=== PATIENT | female | born 1980 | race Hispanic/Latino ===

== ENCOUNTER 2018-12-10 05:50 | Inpatient (IN) | payer MEDICAID ==
--- NOTE | 2018-12-10 06:32 | Emergency Department Report ---
ED General Adult HPI - General Chief complaint: Seizure Stated complaint: SEIZURE Time Seen by Provider: 12/10/18 06:27 Source: family, EMS Mode of arrival: Stretcher Limitations: Other - History of Present Illness Initial comments: 38 year old resident of a fdc who comes with 2 custodians. They state that the patient was seen on Saturday and Saturday for recurrent seizures at [place]. She was not admitted to the hospital. They state that she is having recurrent seizures again this morning. She is on a variety of at the epileptic drugs which does not include Keppra. They described activity which may be consistent with both partial and generalized seizures. The patient is brought to the emergency department for recurrent seizures. Patient herself is not verbal at her baseline. She cannot provide any history. Aside from the seizure activity, the the caretakers do not report any other specific symptoms. They do state that she was treated for a UTI at [place]. - Related Data Allergies Allergy/AdvReac Type Severity Reaction Status Date / Time Penicillins Allergy Unknown Verified 12/10/18 06:15 red dye Allergy Unknown Verified 12/10/18 06:15 ED Review of Systems ROS: Stated complaint: SEIZURE Other details as noted in HPI Comment: Unobtainable due to pts medical conditions ED Past Medical Hx - Past Medical History Previous Medical History?: Yes Hx Seizures: Yes Additional medical history: mental retardation - Surgical History Past Surgical History?: No - Social History Smoking Status: Never Smoker ED Physical Exam - General Limitations: Other (nonverbal patient) General appearance: alert (reasonably alert) - Head Head exam: Present: atraumatic, normocephalic - Eye Eye exam: Present: normal appearance - ENT ENT exam: Present: mucous membranes moist - Neck Neck exam: Present: normal inspection. Absent: tenderness, meningismus - Respiratory Respiratory exam: Present: normal lung sounds bilaterally - Cardiovascular Cardiovascular Exam: Present: regular rate, normal rhythm. Absent: systolic murmur, diastolic murmur, rubs, gallop - GI/Abdominal GI/Abdominal exam: Present: soft, normal bowel sounds. Absent: distended, tenderness, guarding, rebound, rigid - Extremities Exam Extremities exam: Present: normal inspection - Back Exam Back exam: Present: normal inspection - Neurological Exam Neurological exam: Present: alert, CN II-XII intact (as testable). Absent: motor sensory deficit - Psychiatric Psychiatric exam: Present: normal mood, flat affect - Skin Skin exam: Present: warm, dry, intact, normal color. Absent: rash ED Course Vital Signs 12/10/18 06:15 Temperature 98.2 F Pulse Rate 98 H Respiratory 20 Rate Blood Pressure 118/68 O2 Sat by Pulse 99 Oximetry - Reevaluation(s) Reevaluation #1: I ordered the patient to receive a gram of Keppra IV, laboratory workup and CT examination. Admission was being considered for recurrent seizures. I was later informed by nursing staff that instead of getting the Keppra which was 100 mL, inadvertently the nurse gave insulin 100 units in 100 mL. Immediately thereafter, an Accu-Chek was ordered and found to be 55. Patient was given an amp of D50. A D10 drip half normal saline with supplemental potassium was ordered. Every 15 minute Accu-Cheks were ordered. CT the head was completed and showed no acute process. A repeat Accu-Chek was found to be 64. Another amp of D50 was ordered. The patient will be admitted to the [facility]. Hospitalist has been notified. A repeat BMP is also ordered as hypokalemia may be anticipated. I have begun some supplementation prophylactically. Close monitoring of this patient is clearly indicated. She will be kept in the emergency department until her sugar is reasonably stabilized. The charge nurse is aware of the above. I informed the fdc staff of the inadvertent error. I apologized for this. I reassured them that The patient will be closely monitored and should be expected to do well in my opinion. 12/10/18 10:26 12/10/18 10:31 ED Medical Decision Making - Lab Data Result diagrams: 12/10/18 06:42 12/10/18 06:32 Critical Care Time: Yes Critical care time in (mins) excluding proc time.: 60 Critical care attestation.: If time is entered above; I have spent that time in minutes in the direct care of this critically ill patient, excluding procedure time. ED Disposition Clinical Impression: Recurrent seizures, Hypoglycemia Disposition: OP ADMIT IP TO THIS HOSP Is pt being admited?: Yes Does the pt Need Aspirin: Yes Condition: Stable Referrals: CAMILLE VIVAR MD [Primary Care Provider] - 3-5 Days Time of Disposition: 10:33
[2018-12-10] MEDS ORDERED: NACL 0.9% 1000 ML 1,000 ML IV ONE (06:40)
[2018-12-10 06:54] LABS: Hematocrit 38.7 % (30.3-42.9); Hemoglobin 12.8 gm/dl (10.1-14.3); Mean Corpuscular HGB Conc 33 % (30-34); Mean Corpuscular Volume 93 fl (79-97); Platelet Count 127 K/mm3 (140-440); Red Blood Count 4.17 M/mm3 (3.65-5.03); Red Cell Distribution Width 13.5 % (13.2-15.2)
[2018-12-10 07:12] LABS: BUN/Creatinine Ratio 32; Blood Urea Nitrogen 16 mg/dL (7-17); Calcium 8.2 mg/dL (8.4-10.2); Hemolysis Index 11
[2018-12-10] MEDS ORDERED: KEPPRA 1,000 MG/NS 0.75% 100ML 1,000 MG/100 ML BAG IV ONE (07:13)
[2018-12-10] MEDS ORDERED: D50W (25GM) Syringe IV ONE ×4 (09:30→18:52)
[2018-12-10] MEDS ORDERED: D5W/0.45% NACL/KCL 20 MEQ 20 MEQ/1,000 ML BAG IV SCH (10:00)
--- NOTE | 2018-12-10 10:00 | Cat Scan Report ---
CT scan of head without IV contrast: History: Recurrent seizure. Findings: Ventricles are normal in size and midline in location. No evidence of acute ischemia, hemorrhage or mass. No extra-axial fluid collection. Normal brainstem and cerebellum. Normal sinuses and mastoid air cells. Impression: No acute intracranial abnormality.
[2018-12-10] MEDS ORDERED: BABY ASPIRIN PO ONE (10:33)
--- NOTE | 2018-12-10 10:35 | History and Physical Report ---
History of Present Illness Date of examination: 12/10/18 Date of admission: 12/10/18 Chief complaint: Recurrent seizure History of present illness: Patient is a 38-year-old female resident of a [place] [facility] [place] with history of seizure disorder on average has a seizure a day also has a history of mental retardation currently follows at [facility] her primary care and neurology needs. Was recently seen at [facility] for increase frequency of seizure and discharged with treatment for acute cystitis which was felt to be the reason why her seizure has increased. Unfortunately patient continues to have recurrent seizures about 4 yesterday to so far on presentation to the hospital. She takes multiple antiepileptic medications. She is here with a caregiver and is nonverbal at baseline. She does ambulate with gait and is able to feed herself. In the ER she inadvertently received nurse gave insulin 100 units in 100 mL instead of ordered Keppra IV. The error was acknowleged and [place] [facility] staff advised and patient was started on D10 DRIP Following administration of d50. Past History Past Medical History: other (Mental Retardation, seizure) Past Surgical History: Other (unknown) Social history: full code, other (residence of a [place] [facility] [place]) Family history: no significant family history Medications and Allergies Allergies Allergy/AdvReac Type Severity Reaction Status Date / Time Penicillins Allergy Unknown Verified 12/10/18 06:15 red dye Allergy Unknown Verified 12/10/18 06:15 Home Medications Medication Instructions Recorded Confirmed Last Taken Type Calcium Carbonate/Vitamin D3 1 each PO DAILY 12/10/18 12/10/18 Unknown History [Os-Gerard 500+D3 Caplet] Docusate Sodium [Colace] 100 mg PO BID 12/10/18 12/10/18 Unknown History Lactulose 10 gm PO DAILY 12/10/18 12/10/18 Unknown History Quetiapine Fumarate [QUEtiapine 300 mg PO QHS 12/10/18 12/10/18 Unknown History Fumarate] Quetiapine Fumarate [SEROquel] 50 mg PO BID 12/10/18 12/10/18 Unknown History Topiramate [Topiramate ER] 150 mg PO DAILY 12/10/18 12/10/18 Unknown History cephALEXin [Keflex] 500 mg PO Q12HR 12/10/18 12/10/18 Unknown History lamoTRIgine [LaMICtal Odt] 100 mg PO BID 12/10/18 12/10/18 Unknown History levETIRAcetam [Keppra TAB] 1,000 mg PO BID 12/10/18 12/10/18 Unknown History Active Meds: Active Medications Potassium Chloride/Dextrose/Sod Cl (D5w/0.45% Nacl/Kcl 20 Meq) 20 meq in 1,000 mls @ 200 mls/hr IV DIRECT CARI Review of Systems ROS unobtainable: due to mental status All systems: negative (except reported seizure. pt non verbal at baseline) Exam - Physical Exam Narrative exam: VITAL SIGNS: Reviewed. GENERAL: The patient appeared well nourished and normally developed otherwise lethargic, Vital signs as documented. HEAD: No signs of head trauma. EYES: Pupils are equal. Extraocular motions intact. EARS: Hearing grossly intact. MOUTH: Oropharynx is normal. NECK: No adenopathy, no JVD. CHEST: Chest with clear breath sounds bilaterally. No wheezes, rales, or rhonchi. CARDIAC: Regular rate and rhythm. S1 and S2, without murmurs, gallops, or rubs. VASCULAR: No Edema. Peripheral pulses normal and equal in all extremities. ABDOMEN: Soft, non tender and non distended. No rebound or guarding, and no masses palpated. Bowel Sounds normal. MUSCULOSKELETAL: Good range of motion of all major joints. Extremities without clubbing, cyanosis or edema. NEUROLOGIC EXAM: awake but lethargic No focal sensory or strength deficits. PSYCHIATRIC: Mood unable to assess. SKIN: No rash or lesions. - Constitutional Vitals: Temp Pulse Resp BP Pulse Ox 98.2 F 98 H 20 118/68 99 12/10/18 06:15 12/10/18 06:15 12/10/18 06:15 12/10/18 06:15 12/10/18 06:15 Results - Labs CBC & Chem 7: 12/10/18 06:42 12/10/18 14:27 Labs: Laboratory Last Values WBC 6.1 K/mm3 (4.5-11.0) 12/10/18 06:42 RBC 4.17 M/mm3 (3.65-5.03) 12/10/18 06:42 Hgb 12.8 gm/dl (10.1-14.3) 12/10/18 06:42 Hct 38.7 % (30.3-42.9) 12/10/18 06:42 MCV 93 fl (79-97) 12/10/18 06:42 MCH 31 pg (28-32) 12/10/18 06:42 MCHC 33 % (30-34) 12/10/18 06:42 RDW 13.5 % (13.2-15.2) 12/10/18 06:42 Plt Count 127 K/mm3 (140-440) L 12/10/18 06:42 Sodium 137 mmol/L (137-145) 12/10/18 06:32 Potassium 3.6 mmol/L (3.6-5.0) 12/10/18 06:32 Chloride 105.9 mmol/L (98-107) 12/10/18 06:32 Carbon Dioxide 21 mmol/L (22-30) L 12/10/18 06:32 Anion Gap 14 mmol/L 12/10/18 06:32 BUN 16 mg/dL (7-17) 12/10/18 06:32 Creatinine 0.5 mg/dL (0.7-1.2) L 12/10/18 06:32 Estimated GFR > 60 ml/min 12/10/18 06:32 BUN/Creatinine Ratio 32 % 12/10/18 06:32 Glucose 84 mg/dL (65-100) 12/10/18 06:32 POC Glucose 64 (70-105) L 12/10/18 10:29 Calcium 8.2 mg/dL (8.4-10.2) L 12/10/18 06:32 Assessment and Plan Assessment and plan: Patient is a 38-year-old female resident of [place] with history of seizure disorder on average has a seizure a day also has a history of mental retardation currently follows at [facility] her primary care and neurology needs. Was recently seen at [facility] for increase frequency of seizure and discharged with treatment for acute cystitis which was felt to be the reason why her seizure has increased. Unfortunately patient continues to have recurrent se izures about 4 yesterday to so far on presentation to the hospital. She takes multiple antiepileptic medications. She is here with a caregiver and is nonverbal at baseline. She does ambulate with gait and is able to feed herself. In the ER she inadvertently received nurse gave insulin 100 units in 100 mL instead of ordered Keppra IV. The error was acknowledged and [place] [facility] staff advised and patient was started on D10 DRIP Following administration of d50. Seziure disorder Acute Metabolic Encephalopathy secondary to Medication Iatrogenic Hypoglycemia Mental retardation by hx. Admit to [facility] Neurology consult Obtain records from [facility] Give an amp of Bicarb Monitor glucose q1hr D50 as needed MRI Brain, may need sedation Restart appropriate home meds The high probability of a clinically significant, sudden or life threatening deterioration of the [NEURO, ENDOCRINE] system(s) required my full and direct attention, intervention and personal management. The aggregate critical care time was [75] minutes. This time is in addition to time spent performing reported procedures but includes the following: [X] Data Review and interpretation [X] Patient assessment and monitoring of vital signs [X] Documentation [X] Medication orders and management Advance Directives: Yes Plan of care discussed with patient/family: Yes
[2018-12-10] MEDS ORDERED: ZOFRAN IV PRN (11:00)
[2018-12-10] MEDS ORDERED: SODIUM CHLORIDE FLUSH SYRINGE 10 ML IV PRN (11:00)
[2018-12-10] MEDS ORDERED: KCL IV SCH (12:30)
[2018-12-10] MEDS ORDERED: D10W IV SCH (12:30)
[2018-12-10] MEDS ORDERED: NACL IV SCH (12:30)
[2018-12-10 13:24] LABS: BUN/Creatinine Ratio 25; Blood Urea Nitrogen 10 mg/dL (7-17); Calcium 7.6 mg/dL (8.4-10.2); Hemolysis Index 11
[2018-12-10] MEDS ORDERED: D10W 1,000 ML IV SCH (14:00)
[2018-12-10 14:47] LABS: BUN/Creatinine Ratio 18; Blood Urea Nitrogen 9 mg/dL (7-17); Hemolysis Index 51
[2018-12-10] MEDS ORDERED: ATROPINE 0.1% (CARDIAC) ONE (17:06)
[2018-12-10] MEDS ORDERED: BENADRYL PO PRN (17:16)
--- NOTE | 2018-12-10 17:47 | Consultation ---
History of Present Illness Consult date: 12/10/18 Requesting physician: CIARA BOX Reason for Consult: Intractable seizures History of present illness: 38 year old female was brought in from a correction because of multiple seizures per day. The pt. has mental retardation as well as known seizure disorder treated at [facility]. She is taking multiple medications. The pt. was seen there on the weekend for the same problem and told that she had a UTI, as t he cause of her seizures. She has been taking an antibiotic for this but it has not affected the seizure activity. Caregivers have brought her in for further care. The pt, is nonverbal. She ambulates with assistance with a gait belt and also feeds herself. Past History Past Medical History: seizures, other (mental retardation) Past Surgical History: No surgical history Social history: other (lives in correction). denies: smoking, alcohol abuse Medications and Allergies Allergies Allergy/AdvReac Type Severity Reaction Status Date / Time Penicillins Allergy Unknown Verified 12/10/18 06:15 red dye Allergy Unknown Verified 12/10/18 06:15 Home Medications Medication Instructions Recorded Confirmed Last Taken Type Calcium Carbonate/Vitamin D3 1 each PO DAILY 12/10/18 12/10/18 Unknown History [Os-Gerard 500+D3 Caplet] Docusate Sodium [Colace] 100 mg PO BID 12/10/18 12/10/18 Unknown History Lactulose 10 gm PO DAILY 12/10/18 12/10/18 Unknown History Quetiapine Fumarate [QUEtiapine 300 mg PO QHS 12/10/18 12/10/18 Unknown History Fumarate] Quetiapine Fumarate [SEROquel] 50 mg PO BID 12/10/18 12/10/18 Unknown History Topiramate [Topiramate ER] 150 mg PO DAILY 12/10/18 12/10/18 Unknown History cephALEXin [Keflex] 500 mg PO Q12HR 12/10/18 12/10/18 Unknown History lamoTRIgine [LaMICtal Odt] 100 mg PO BID 12/10/18 12/10/18 Unknown History levETIRAcetam [Keppra TAB] 1,000 mg PO BID 12/10/18 12/10/18 Unknown History Active Meds: Active Medications Albuterol/Ipratropium (Duoneb *Not For Prn Use*) 1 ampul IH Q6HRT CARI Calcium/Vitamin D ([place] D 500 Mg-200 Unit) 1 each PO DAILY CARI Cephalexin (Keflex) 500 mg PO Q12HR CARI Diphenhydramine HCl (Benadryl) 50 mg PO Q6H PRN PRN Reason: Itching Docusate Sodium (Colace) 100 mg PO BID CARI Dextrose (D10w) 1,000 mls @ 125 mls/hr IV DIRECT CARI Lamotrigine (Lamictal) 100 mg PO BID CARI Levetiracetam (Keppra) 1,000 mg PO BID CARI Miscellaneous Medication (Topiramate [Topiramate Er]) 150 mg PO DAILY CARI Ondansetron HCl (Zofran) 4 mg IV Q8H PRN PRN Reason: Nausea And Vomiting Quetiapine Fumarate (Seroquel) 50 mg PO BID CARI Quetiapine Fumarate (Seroquel) 300 mg PO QHS CARI Sodium Chloride (Sodium Chloride Flush Syringe 10 Ml) 10 ml IV BID CARI Sodium Chloride (Sodium Chloride Flush Syringe 10 Ml) 10 ml IV PRN PRN PRN Reason: LINE FLUSH Review of Systems ROS unobtainable: due to mental status Physical Examination - Vital Signs Vital Signs: Vital Signs Pulse Resp BP 109 H 10 L 118/85 12/10/18 06:01 12/10/18 06:01 12/10/18 06:01 - Physical Exam Narrative exam: General - Writhing on [facility]. 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 Constantly in motion. No witnessed seizures Results - Laboratory Findings CBC and BMP: 12/10/18 06:42 12/10/18 14:27 Abnormal Lab Findings: Abnormal Labs 12/10/18 12/10/18 12/10/18 06:32 06:42 09:28 Plt Count 127 L Chloride Carbon Dioxide 21 L Creatinine 0.5 L POC Glucose 55 L Calcium 8.2 L 12/10/18 12/10/18 12/10/18 09:44 10:11 10:29 Plt Count Chloride Carbon Dioxide Creatinine POC Glucose 186 H 118 H 64 L Calcium 12/10/18 12/10/18 12/10/18 10:58 11:16 12:10 Plt Count Chloride 112.2 H Carbon Dioxide 19 L Creatinine 0.4 L POC Glucose 141 H 136 H Calcium 7.6 L 12/10/18 12/10/18 12/10/18 13:44 14:27 14:58 Plt Count Chloride 110.7 H Carbon Dioxide 19 L Creatinine 0.5 L POC Glucose 118 H 110 H Calcium 8.0 L Assessment and Plan 38 year old with history of seizure disorder and MR, presents with multiple seizures daily. Followed by [facility]. Said to be taking meds appropriately. Several of them do not seem to be on formulary here. Plan - check UA. MRI of brain - sedate with valium 5 mg. Benadryl for agitation Records from [facility]
[2018-12-10] MEDS ORDERED: VALIUM PO NR (18:01)
[2018-12-10] MEDS: KEPPRA PO SCH (21:58)
[2018-12-10] MEDS: COLACE PO SCH (21:59)
[2018-12-10] MEDS ORDERED: LAMOTRIGINE 100 MG PO SCH (22:00)
[2018-12-10] MEDS ORDERED: NON-FORMULARY (Quetiapine Fumarate [Quetiapine Fumarate] 300 MG) PO SCH (22:00)
[2018-12-10] MEDS ORDERED: NON-FORMULARY (Levetiracetam [Keppra Tab] 1,000 MG) PO SCH (22:00)
[2018-12-10] MEDS ORDERED: NON-FORMULARY (Quetiapine Fumarate [Seroquel] 50 MG) PO SCH (22:00)
[2018-12-10] MEDS: LaMICtal PO SCH (22:01)
[2018-12-10] MEDS: KEFLEX PO SCH (22:01)
[2018-12-10 22:03] LABS: BUN/Creatinine Ratio 13; Blood Urea Nitrogen 5 mg/dL (7-17); Hemolysis Index 71
[2018-12-11 05:25] LABS: Basophils % (Auto) 0.2 % (0.0-1.8); Eosinophils # (Auto) 0.1 K/mm3 (0.0-0.4); Eosinophils % (Auto) 0.7 % (0.0-4.3); Hemoglobin 12.3 gm/dl (10.1-14.3); Lymphocytes # (Auto) 2.1 K/mm3 (1.2-5.4); Lymphocytes % (Auto) 25.8 % (13.4-35.0); Mean Corpuscular HGB Conc 34 % (30-34); Mean Corpuscular Volume 91 fl (79-97); Monocytes # (Auto) 1.1 K/mm3 (0.0-0.8); Monocytes % (Auto) 13.5 % (0.0-7.3); Platelet Count 139 K/mm3 (140-440); Red Blood Count 3.98 M/mm3 (3.65-5.03); Red Cell Distribution Width 13.3 % (13.2-15.2)
[2018-12-11 05:51] LABS: Alanine Aminotransferase 15 units/L (7-56); Albumin 3.5 g/dL (3.9-5); BUN/Creatinine Ratio 10; Blood Urea Nitrogen 4 mg/dL (7-17); Calcium 7.8 mg/dL (8.4-10.2); Hemolysis Index 2
[2018-12-11] MEDS ORDERED: D5/0.45NS 1,000 ML IV SCH (08:00)
[2018-12-11] MEDS: DUONEB *Not for PRN Use IH SCH ×6 (09:00→20:22)
[2018-12-11] MEDS ORDERED: TOPIRAMATE 150 MG PO SCH (10:00)
[2018-12-11] MEDS ORDERED: OYSCO D 500 MG-200 UNIT PO SCH (10:00)
[2018-12-11] MEDS: COLACE PO SCH ×2 (10:12→22:10)
[2018-12-11] MEDS: KEPPRA PO SCH ×2 (10:12→22:09)
[2018-12-11] MEDS: KEFLEX PO SCH ×2 (10:12→22:09)
[2018-12-11] MEDS: SODIUM CHLORIDE FLUSH SYRINGE 10 ML IV SCH ×2 (10:12→22:11)
[2018-12-11] MEDS: LaMICtal PO SCH ×2 (13:04→22:09)
--- NOTE | 2018-12-11 15:43 | Progress Note ---
Assessment and Plan 38 year old with history of seizure disorder and MR, presents with multiple seizures daily. Followed by [facility]. Said to be taking meds appropriately. Several of them do not seem to be on formulary here. At present she is receiving Lamotrigine 100 mg BID, Keppra 750 mg BID and Topiramate 150 mg BID Plan - check UA. MRI of brain - sedate with valium 5 mg. Benadryl for agitation Records from [place] Subjective Date of service: 12/11/18 Principal diagnosis: seizures, mental retardation Interval history: 38 year old female was brought in from a senior living because of multiple seizures per day. The pt. has mental retardation as well as known seizure disorder treated at [facility]. She is taking multiple medications. The pt. was seen there on the weekend for the same problem and told that she had a UTI, as the cause of her seizures. She has been taking an antibiotic for this but it has not affected the seizure activity. Caregivers have brought her in because of worsened seizure activity. Today she continues with seizures in the form of posturing. MRI has not yet been done. Records from [facility] would be helpful. Objective - Exam Narrative Exam: General - Sitting up in chair with helmet in place. Neurological - Calm, no abnormal movements. 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 . No witnessed seizures - Vital Sign Vital Signs - 12hr 12/11/18 12/11/18 12/11/18 03:50 04:00 04:11 Temperature 98.5 F Pulse Rate 119 H 116 H 119 H Pulse Rate [ From Monitor] Respiratory 18 17 17 Rate Blood Pressure 93/58 93/58 102/57 O2 Sat by Pulse 97 97 98 Oximetry 12/11/18 12/11/18 12/11/18 04:21 04:30 04:41 Temperature Pulse Rate 118 H 118 H 118 H Pulse Rate [ From Monitor] Respiratory 35 H 25 H 19 Rate Blood Pressure 102/57 107/80 107/80 O2 Sat by Pulse 97 97 97 Oximetry 12/11/18 12/11/18 12/11/18 04:51 05:00 05:11 Temperature Pulse Rate 115 H 116 H 115 H Pulse Rate [ From Monitor] Respiratory 16 17 19 Rate Blood Pressure 107/80 110/57 110/57 O2 Sat by Pulse 98 98 97 Oximetry 04/12/2612/11/18 12/11/18 05:21 05:30 05:41 Temperature Pulse Rate 111 H 111 H 115 H Pulse Rate [ From Monitor] Respiratory 18 19 17 Rate Blood Pressure 110/57 104/61 104/61 O2 Sat by Pulse 97 97 97 Oximetry 12/11/18 12/11/18 12/11/18 05:51 06:00 06:11 Temperature Pulse Rate 113 H 114 H 113 H Pulse Rate [ 118 H From Monitor] Respiratory 18 18 16 Rate Blood Pressure 104/61 104/62 104/62 O2 Sat by Pulse 96 96 98 Oximetry 12/11/18 12/11/18 12/11/18 06:21 06:30 06:41 Temperature Pulse Rate 116 H 116 H 118 H Pulse Rate [ From Monitor] Respiratory 17 17 17 Rate Blood Pressure 104/62 102/64 102/64 O2 Sat by Pulse 97 96 95 Oximetry 12/11/18 12/11/18 12/11/18 06:51 07:00 07:11 Temperature Pulse Rate 116 H 113 H 109 H Pulse Rate [ From Monitor] Respiratory 12 19 17 Rate Blood Pressure 102/64 112/71 112/71 O2 Sat by Pulse 99 100 99 Oximetry 12/11/18 12/11/18 12/11/18 07:21 07:29 07:30 Temperature 97.8 F Pulse Rate 117 H 104 H Pulse Rate [ From Monitor] Respiratory 17 18 Rate Blood Pressure 112/71 112/72 O2 Sat by Pulse 99 100 Oximetry 12/11/18 12/11/18 12/11/18 07:41 07:51 08:01 Temperature Pulse Rate 111 H 111 H 113 H Pulse Rate [ From Monitor] Respiratory 16 22 13 Rate Blood Pressure 112/72 112/72 112/72 O2 Sat by Pulse 100 100 100 Oximetry 12/11/18 12/11/18 12/11/18 08:11 08:21 08:31 Temperature Pulse Rate 133 H 125 H 125 H Pulse Rate [ From Monitor] Respiratory 13 15 13 Rate Blood Pressure 112/72 112/72 112/72 O2 Sat by Pulse 100 98 100 Oximetry 12/11/18 12/11/18 12/11/18 08:41 08:51 09:01 Temperature Pulse Rate 123 H 123 H 124 H Pulse Rate [ From Monitor] Respiratory 25 H 21 17 Rate Blood Pressure 112/72 112/72 112/72 O2 Sat by Pulse 89 98 100 Oximetry 12/11/18 12/11/18 12/11/18 09:11 09:21 09:31 Temperature Pulse Rate 125 H 118 H 116 H Pulse Rate [ From Monitor] Respiratory 21 20 15 Rate Blood Pressure 112/72 112/72 112/72 O2 Sat by Pulse 99 98 100 Oximetry 12/11/18 12/11/18 12/11/18 09:41 09:51 10:00 Temperature Pulse Rate 118 H 123 H 112 H Pulse Rate [ 116 H From Monitor] Respiratory 18 25 H 20 Rate Blood Pressure 112/72 112/72 O2 Sat by Pulse 100 98 100 Oximetry 12/11/18 12/11/18 12/11/18 10:01 10:11 10:21 Temperature Pulse Rate 124 H 125 H 136 H Pulse Rate [ From Monitor] Respiratory 28 H 20 29 H Rate Blood Pressure 112/72 112/72 112/72 O2 Sat by Pulse 100 97 97 Oximetry 12/11/18 12/11/18 12/11/18 10:31 10:41 10:50 Temperature Pulse Rate 117 H Pulse Rate [ From Monitor] Respiratory 19 Rate Blood Pressure 112/72 112/72 112/72 O2 Sat by Pulse 95 95 100 Oximetry 12/11/18 12/11/18 12/11/18 11:00 11:11 11:20 Temperature Pulse Rate Pulse Rate [ From Monitor] Respiratory Rate Blood Pressure 118/75 118/75 118/75 O2 Sat by Pulse 100 99 78 L Oximetry 12/11/18 12/11/18 11:31 11:43 Temperature 97.4 F L Pulse Rate 121 H Pulse Rate [ From Monitor] Respiratory 17 Rate Blood Pressure 118/75 O2 Sat by Pulse Oximetry - Laboratory Findings CBC and BMP: 12/11/18 05:04 12/11/18 05:04 Abnormal Lab Findings: Abnormal Labs 12/10/18 12/10/18 12/10/18 06:32 06:42 09:28 Plt Count 127 L [place] % (Auto) [place] # Chloride Carbon Dioxide 21 L BUN Creatinine 0.5 L Glucose POC Glucose 55 L Calcium 8.2 L Total Protein Albumin 12/10/18 12/10/18 12/10/18 09:44 10:11 10:29 Plt Count [place] % (Auto) [place] # Chloride Carbon Dioxide BUN Creatinine Glucose POC Glucose 186 H 118 H 64 L Calcium Total Protein Albumin 12/10/18 12/10/18 12/10/18 10:58 11:16 12:10 Plt Count [place] % (Auto) [place] # Chloride 112.2 H Carbon Dioxide 19 L BUN Creatinine 0.4 L Glucose POC Glucose 141 H 136 H Calcium 7.6 L Total Protein Albumin 12/10/18 12/10/18 12/10/18 13:44 14:27 14:58 Plt Count [place] % (Auto) [place] # Chloride 110.7 H Carbon Dioxide 19 L BUN Creatinine 0.5 L Glucose POC Glucose 118 H 110 H Calcium 8.0 L Total Protein Albumin 12/10/18 12/10/18 12/10/18 18:47 20:42 21:15 Plt Count [place] % (Auto) [place] # Chloride Carbon Dioxide 19 L BUN 5 L Creatinine 0.4 L Glucose 163 H POC Glucose 67 L 160 H Calcium 8.0 L Total Protein Albumin 12/11/18 12/11/18 12/11/18 00:07 02:06 05:04 Plt Count 139 L [place] % (Auto) 13.5 H [place] # 1.1 H Chloride Carbon Dioxide BUN Creatinine Glucose POC Glucose 111 H 165 H Calcium Total Protein Albumin 12/11/18 12/11/18 12/11/18 05:04 06:53 07:44 Plt Count [place] % (Auto) [place] # Chloride 108.6 H Carbon Dioxide BUN 4 L Creatinine 0.4 L Glucose 149 H POC Glucose 187 H 157 H Calcium 7.8 L Total Protein 5.7 L Albumin 3.5 L
--- NOTE | 2018-12-11 17:17 | Progress Note ---
Assessment and Plan Assessment and plan: Patient is a 38-year-old female resident of a [facility] with history of seizure disorder on average has a seizure a day also has a history of mental retardation currently follows at [facility] her primary care and neurology needs. Was recently seen at [facility] for increase frequency of seizure and discharged with treatment for acute cystitis which was felt to be the reason why her seizure has increased. Unfortunately patient continues to have recurrent seizures about 4 yesterday to so far on presentation to the hospital. She takes multiple antiepileptic medications. She is here with a caregiver and is nonverbal at baseline. She does ambulate with gait and is able to feed herself. In the ER she inadvertently received nurse gave insulin 100 units in 100 mL instead of ordered Keppra IV. The error was acknowledged and [facility] staff advised and patient was started on D10 DRIP Following administration of d50. Seizure disorder Acute Metabolic Encephalopathy secondary to Medication Iatrogenic Hypoglycemia Mental retardation by hx. Plan Neurology input noted Awaiting UA, discussed with Nursing staff Still awaiting records from [place] Change to D5 Monitor glucose q1hr D50 as needed MRI Brain, may need sedation-ordered valium by NEUROLOGY Restarted appropriate home meds Transfer to [facility]. No further seizure noted Continue oral abx to complete tx DVT/GI prophy History Interval history: Patient seen and examined, blew some hand to mouth kisses, very active, safety aide in place, no new complaints. Hospitalist Physical - Physical exam Narrative exam: VITAL SIGNS: Reviewed. GENERAL: The patient appeared well nourished and normally developed otherwise. Vital signs as documented. HEAD: No signs of head trauma. EYES: Pupils are equal. Extraocular motions intact. EARS: Hearing grossly intact. MOUTH: Oropharynx is normal. NECK: No adenopathy, no JVD. CHEST: Chest with clear breath sounds bilaterally. No wheezes, rales, or rhonchi. CARDIAC: Regular rate and rhythm. S1 and S2, without murmurs, gallops, or rubs. VASCULAR: No Edema. Peripheral pulses normal and equal in all extremities. ABDOMEN: Soft, non tender and non distended. No rebound or guarding, and no masses palpated. Bowel Sounds normal. MUSCULOSKELETAL: Good range of motion of all major joints. Extremities without clubbing, cyanosis or edema. NEUROLOGIC EXAM: awake but unable to asssess orientation No focal sensory or strength deficits. PSYCHIATRIC: Mood unable to assess. SKIN: No rash or lesions. - Constitutional Vitals: Temp Pulse Resp BP Pulse Ox 97.4 F L 121 H 17 118/75 78 L 12/11/18 11:43 12/11/18 11:31 12/11/18 11:31 12/11/18 11:31 12/11/18 11:20 Results - Labs CBC & Chem 7: 12/11/18 05:04 12/11/18 05:04 Labs: Laboratory Last Values WBC 8.2 K/mm3 (4.5-11.0) 12/11/18 05:04 RBC 3.98 M/mm3 (3.65-5.03) 12/11/18 05:04 Hgb 12.3 gm/dl (10.1-14.3) 12/11/18 05:04 Hct 36.0 % (30.3-42.9) 12/11/18 05:04 MCV 91 fl (79-97) 12/11/18 05:04 MCH 31 pg (28-32) 12/11/18 05:04 MCHC 34 % (30-34) 12/11/18 05:04 RDW 13.3 % (13.2-15.2) 12/11/18 05:04 Plt Count 139 K/mm3 (140-440) L 12/11/18 05:04 Lymph % (Auto) 25.8 % (13.4-35.0) 12/11/18 05:04 Randolph % (Auto) 13.5 % (0.0-7.3) H 12/11/18 05:04 Eos % (Auto) 0.7 % (0.0-4.3) 12/11/18 05:04 Baso % (Auto) 0.2 % (0.0-1.8) 12/11/18 05:04 Lymph # 2.1 K/mm3 (1.2-5.4) 12/11/18 05:04 Randolph # 1.1 K/mm3 (0.0-0.8) H 12/11/18 05:04 Eos # 0.1 K/mm3 (0.0-0.4) 12/11/18 05:04 Baso # 0.0 K/mm3 (0.0-0.1) 12/11/18 05:04 Seg Neutrophils % 59.8 % (40.0-70.0) 12/11/18 05:04 Seg Neutrophils # 4.9 K/mm3 (1.8-7.7) 12/11/18 05:04 Sodium 143 mmol/L (137-145) 12/11/18 05:04 Potassium 3.6 mmol/L (3.6-5.0) 12/11/18 05:04 Chloride 108.6 mmol/L (98-107) H 12/11/18 05:04 Carbon Dioxide 22 mmol/L (22-30) 12/11/18 05:04 Anion Gap 16 mmol/L 12/11/18 05:04 BUN 4 mg/dL (7-17) L 12/11/18 05:04 Creatinine 0.4 mg/dL (0.7-1.2) L 12/11/18 05:04 Estimated GFR > 60 ml/min 12/11/18 05:04 BUN/Creatinine Ratio 10 % 12/11/18 05:04 Glucose 149 mg/dL (65-100) H 12/11/18 05:04 POC Glucose 105 (70-105) 12/11/18 11:19 Calcium 7.8 mg/dL (8.4-10.2) L 12/11/18 05:04 Total Bilirubin 0.20 mg/dL (0.1-1.2) 12/11/18 05:04 AST 13 units/L (5-40) 12/11/18 05:04 ALT 15 units/L (7-56) 12/11/18 05:04 Alkaline Phosphatase 87 units/L (35-129) 12/11/18 05:04 Total Protein 5.7 g/dL (6.3-8.2) L 12/11/18 05:04 Albumin 3.5 g/dL (3.9-5) L 12/11/18 05:04 Albumin/Globulin Ratio 1.6 % 12/11/18 05:04 Active Medications - Current Medications Current Medications: Generic Name Dose Route Start Last Admin Trade Name Freq PRN Reason Stop Dose Admin Albuterol/Ipratropium 1 ampul 12/10/18 14:00 12/11/18 15:40 Duoneb *Not For Prn Use* IH Not Given Q6HRT CARI Calcium/Vitamin D 1 each 12/11/18 10:00 Oysco D 500 Mg-200 Unit PO DAILY [facility] Cephalexin 500 mg 12/10/18 22:00 12/11/18 10:12 Keflex PO 500 mg Q12HR CARI Administration Diphenhydramine HCl 50 mg 12/10/18 17:16 Benadryl PO Q6H PRN Itching Docusate Sodium 100 mg 12/10/18 22:00 12/11/18 10:12 Colace PO 100 mg BID CARI Administration Dextrose/Sodium Chloride 1,000 mls @ 75 mls/hr 12/11/18 08:00 D5/0.45ns IV DIRECT CARI Lamotrigine 100 mg 12/10/18 22:00 12/11/18 13:04 Lamictal PO 100 mg BID CARI Administration Levetiracetam 1,000 mg 12/10/18 22:00 12/11/18 10:12 Keppra PO 1,000 mg BID CARI Administration Miscellaneous Medication 150 mg 12/11/18 10:00 Topiramate [Topiramate Er] PO DAILY [facility] Ondansetron HCl 4 mg 12/10/18 11:00 12/10/18 23:53 Zofran IV 4 mg Q8H PRN Administration Nausea And Vomiting Quetiapine Fumarate 50 mg 12/10/18 22:00 12/11/18 10:12 Seroquel PO 50 mg BID CARI Administration Quetiapine Fumarate 300 mg 12/10/18 22:00 12/10/18 21:59 Seroquel PO 300 mg QHS CARI Administration Sodium Chloride 10 ml 12/10/18 11:00 12/11/18 10:12 Sodium Chloride Flush Syringe 10 Ml IV 10 ml BID CARI Administration Sodium Chloride 10 ml 12/10/18 11:00 Sodium Chloride Flush Syringe 10 Ml IV PRN PRN LINE FLUSH
[2018-12-11 21:31] LABS: Bilirubin,Urine NEG (Negative); Blood,Urine MOD (Negative); Color,Urine Yellow (Yellow); Mucus,Urine 2+ /HPF; Protein,Urine <15 mg/dL mg/dL (Negative)
[2018-12-11] MEDS: HEPARIN SUB-Q SCH (22:10)
[2018-12-12] MEDS: DUONEB *Not for PRN Use IH SCH ×3 (08:17→20:51)
--- NOTE | 2018-12-12 09:18 | Discharge Summary ---
Providers - Providers Date of Admission: 12/10/18 10:03 Attending physician: CIARA BOX MD 12/10/18 10:34 Consult to Physician [CONS] Routine Comment: Consulting Provider: MATILDE MCBRIDE Physician Instructions: Reason For Exam: intractable seizure Primary care physician: CAMILLE VIVAR Hospitalization Reason for admission: seizure Condition: Stable Hospital course: Patient is a 38-year-old female resident of a shelter with history of seizure disorder on average has a seizure a day also has a history of mental retardation currently follows at [facility] her primary care and neurology needs. Was recently seen at [facility] for increase frequency of seizure and discharged with treatment for acute cystitis which was felt to be the reason why her seizure has increased. Unfortunately patient continues to have recurrent seizures about 4 yesterday to so far on presentation to the hospital. She takes multiple antiepileptic medications. She is here with a caregiver and is nonverbal at baseline. She does ambulate with gait and is able to feed herself. In the ER she inadvertently received nurse gave insulin 100 units in 100 mL instead of ordered Keppra IV. The error was acknowledged and shelter staff advised and patient was started on D10 DRIP Following administration of d50. Patient improved with no further seizure witnessed in house. MRI was done and patient seen by Neurologist. She is stable for discharge back to the facility at this time and recommend completing treatment for prior diagnosed UTI Seizure disorder Acute Metabolic Encephalopathy secondary to Medication Iatrogenic Hypoglycemia Mental retardation by hx. Plan Neurology input noted Awaiting UA, discussed with Nursing staff Still awaiting records from [place] Change to D5 Monitor glucose q1hr D50 as needed MRI Brain, may need sedation-ordered valium by NEUROLOGY Restarted appropriate home meds Transfer to [facility]. No further seizure noted Continue oral abx to complete tx DVT/GI prophy Disposition: DC-01 TO HOME OR SELFCARE Time spent for discharge: 35 mins Core Measure Documentation - Palliative Care Palliative Care/ Comfort Measures: Not Applicable - Core Measures Any of the following diagnoses?: none Exam - Physical Exam Narrative exam: VITAL SIGNS: Reviewed. GENERAL: The patient appeared well nourished and normally developed otherwise. Vital signs as documented. HEAD: No signs of head trauma. EYES: Pupils are equal. Extraocular motions intact. EARS: Hearing grossly intact. MOUTH: Oropharynx is normal. NECK: No adenopathy, no JVD. CHEST: Chest with clear breath sounds bilaterally. No wheezes, rales, or rhonchi. CARDIAC: Regular rate and rhythm. S1 and S2, without murmurs, gallops, or rubs. VASCULAR: No Edema. Peripheral pulses normal and equal in all extremities. ABDOMEN: Soft, non tender and non distended. No rebound or guarding, and no masses palpated. Bowel Sounds normal. MUSCULOSKELETAL: Good range of motion of all major joints. Extremities without clubbing, cyanosis or edema. NEUROLOGIC EXAM: awake but unable to asssess orientation No focal sensory or strength deficits. PSYCHIATRIC: Mood unable to assess. SKIN: No rash or lesions. - Constitutional Vitals: Temp Pulse Resp BP Pulse Ox 97.7 F 103 H 24 91/58 99 12/12/18 05:03 12/12/18 05:03 12/12/18 05:03 12/12/18 05:03 12/12/18 05:03 Plan Activity: advance as tolerated, fall precautions Diet: regular Special Instructions: record daily BP diary Additional Instructions: follow with [facility] Follow up with: CAMILLE VIVAR MD [Primary Care Provider] - 3-5 Days Prescriptions: diphenhydrAMINE [Benadryl CAP] 50 mg PO Q6H PRN #14 capsule PRN Reason: Itching
[2018-12-12] MEDS: HEPARIN SUB-Q SCH (10:00)
[2018-12-12] MEDS: COLACE PO SCH (10:10)
[2018-12-12] MEDS: SODIUM CHLORIDE FLUSH SYRINGE 10 ML IV SCH (10:10)
[2018-12-12] MEDS: LaMICtal PO SCH (10:11)
[2018-12-12] MEDS: KEFLEX PO SCH (10:11)
[2018-12-12] MEDS: KEPPRA PO SCH (10:11)
[2018-12-12] MEDS ORDERED: VALIUM IV PRN (12:43)
--- NOTE | 2018-12-12 17:07 | Magnetic Resonance Report ---
PROCEDURE: MRI brain without contrast. TECHNIQUE: Magnetic resonance imaging of the brain was performed without contrast material. HISTORY: Seizure. COMPARISONS: None. FINDINGS: The ventricles are normal in size. The nayak matter and white matter have normal signal intensity. The re are no mass lesions. There is no intracranial hemorrhage. There are no signs of restricted diffusi on. The mastoid air cells and paranasal sinuses are clear. IMPRESSION: Normal study. This document is electronically signed by Kenyon Malik MD., December 12 2018 05:05:02 PM ET
[2018-12-12 17:40] VITALS: BP 126/82
== END 2018-12-12 20:00 | disposition home or self-care (01) | DRG 100 ==
LOC: ED 05:50 → IMCU 10:03 → 3A 12-11 16:41
PROVIDERS: ADMIT Internal Medicine; ATTEND Internal Medicine
DX: G40.909 Epilepsy, unspecified, not intractable, without status epilepticus (principal); G92 Toxic encephalopathy; E16.0 Drug-induced hypoglycemia without coma; T50.995A Adverse effect of other drugs, medicaments and biological substances, initial encounter; Z88.0 Allergy status to penicillin; Z91.041 Radiographic dye allergy status; Z79.899 Other long term (current) drug therapy; Y92.098 Other place in other non-institutional residence as the place of occurrence of the external cause
CPT/HCPCS: 36415; 70450; 70551; 80048; 80053; 81001; 82962; 85025; 85027; 87116; 94640; 96361; 96374; 96375; G0378; J0461; J1644; J1953; J2405; J3360; J3480; J7030; J7131

== ENCOUNTER 2020-05-07 13:16 | Emergency (ER) | payer MEDICAID ==
--- NOTE | 2020-05-07 14:25 | Emergency Department Report ---
HPI - General Chief Complaint: Seizure Time Seen by Provider: 05/07/20 14:14 - HPI HPI: 40-year-old female presents to the emergency department via EMS from her personal [facility] with complaint of a seizure this morning around 5 AM and subsequent right ankle pain and/or swelling. Patient is nonverbal at baseline. On top of the seizures the patient has a history of mental retardation. There is 24-hour care there and the patient was witnessed having a seizure upon returning from the bathroom at about 5 AM this morning. The facility noticed right ankle swelling and called for EMS transportation. The patient takes Onfi for her seizures and is allegedly compliant with the medication. It is unknown the last time the patient had a seizure prior to today. ED Past Medical Hx - Past Medical History Previous Medical History?: Yes Hx Congestive Heart Failure: No Hx Diabetes: No Hx Seizures: Yes Hx Asthma: No Hx COPD: No Additional medical history: mental retardation - Surgical History Past Surgical History?: No - Social History Smoking Status: Never Smoker Substance Use Type: None - Medications Home Medications: Home Medications Medication Instructions Recorded Confirmed Last Taken Type Calcium Carbonate/Vitamin D3 1 each PO DAILY 12/10/18 12/10/18 Unknown History [Os-Gerard 500-Vit D3 200 Caplet] Docusate Sodium [Colace CAP] 100 mg PO BID 12/10/18 12/10/18 Unknown History Lactulose 10 gm PO DAILY 12/10/18 12/10/18 Unknown History Quetiapine Fumarate [QUEtiapine 300 mg PO QHS 12/10/18 12/10/18 Unknown History Fumarate] Quetiapine Fumarate [SEROquel] 50 mg PO BID 12/10/18 12/10/18 Unknown History Topiramate [Topiramate ER] 150 mg PO DAILY 12/10/18 12/10/18 Unknown History cephALEXin [Keflex] 500 mg PO Q12HR 12/10/18 12/10/18 Unknown History lamoTRIgine [LaMICtal Odt] 100 mg PO BID 12/10/18 12/10/18 Unknown History levETIRAcetam [Keppra TAB] 1,000 mg PO BID 12/10/18 12/10/18 Unknown History diphenhydrAMINE [Benadryl CAP] 50 mg PO Q6H PRN #14 capsule 12/12/18 Unknown Rx ED Review of Systems ROS: Stated complaint: RT ANKLE INJURED Other details as noted in HPI Comment: Unobtainable due to pts medical conditions Physical Exam - Physical Exam Vital Signs: Vital Signs 05/07/20 14:22 Temperature 98.4 F Pulse Rate 92 H Respiratory 18 Rate Blood Pressure 117/79 [Right] O2 Sat by Pulse 99 Oximetry Physical Exam: GENERAL: The patient is well-developed well-nourished. HENT: Normocephalic. Atraumatic. Patient has moist mucous membranes. EYES: Extraocular motions are intact. NECK: Supple. Trachea is midline. CHEST/LUNGS: Clear to auscultation. There is no respiratory distress noted. HEART/CARDIOVASCULAR: Regular. There is no tachycardia. ABDOMEN: Abdomen is soft, nontender. Patient has normal bowel sounds. SKIN: Skin is warm and dry. There is nonpitting swelling to the distal right leg and ankle. NEURO: The patient is awake. Patient does not follow commands and is occasionally yelling out but this is her baseline mental status per the fiscal assistant. MUSCULOSKELETAL: There is nonpitting swelling to the distal right leg and ankle. +2/4 dorsalis pedis pulse. Capillary refill less than 2 seconds. ED Course Vital Signs 05/07/20 14:22 Temperature 98.4 F Pulse Rate 92 H Respiratory 18 Rate Blood Pressure 117/79 [Right] O2 Sat by Pulse 99 Oximetry - Consultations Consultation #1: 05/07/20 15:42 Patient has a moderately displaced spiral fracture to the distal one third of her right tibia. We do not have any trauma service or orthopedist. I have concern that the patient may need ORIF and she has some level of mental retardation. For these reasons I have contacted [facility] and the patient has been accepted for transfer by the trauma attending, Dr. Su. ED Medical Decision Making - Lab Data Result diagrams: 05/07/20 15:12 05/07/20 14:27 - Radiology Data Radiology results: image reviewed interpreted by me: X-ray of the right ankle shows a distal tibial spiral fracture with moderate displacement - Medical Decision Making This patient with a history of seizures and mental retardation presents with some swelling to the right lower leg and ankle after having a fall status post seizure this morning at about 5 AM. X-ray shows a distal spiral tibial fracture. She is neurovascularly intact. However we do not have any orthopedic or trauma service at this time and the patient may need open reduction internal fixation. She has been accepted for transfer to [facility] by the trauma attending. Critical Care Time: No Critical care attestation.: If time is entered above; I have spent that time in minutes in the direct care of this critically ill patient, excluding procedure time. ED Disposition Clinical Impression: Recurrent seizures Closed right tibial fracture Qualifiers: Encounter type: initial encounter Tibia location: shaft Fracture morphology: spiral Fracture alignment: displaced Qualified Code(s): S82.241A - Displaced spiral fracture of shaft of right tibia, initial encounter for closed fracture Disposition: DC/TX-70 ANOTHER TYPE HLTHCARE Is pt being admited?: No Condition: Stable Time of Disposition: 18:17
--- NOTE | 2020-05-07 15:06 | XRay Report ---
RIGHT ANKLE 2 VIEW(S) INDICATION / CLINICAL INFORMATION: right ankle pain COMPARISON: None available. FINDINGS: BONES / JOINT(S): Acute moderately displaced spiral fracture distal third right tibial shaft. No sign ificant arthritis. SOFT TISSUES: Moderate diffuse soft tissue swelling throughout right ankle and foreleg ADDITIONAL FINDINGS: None. Signer Name: Jose M Crow MD Signed: 05/07/2020 3:01 PM Workstation Name: [id number]
[2020-05-07 15:17] LABS: Blood Urea Nitrogen 18 mg/dL (7-17); Calcium 9.5 mg/dL (8.4-10.2); Hemolysis Index 189
[2020-05-07 15:30] LABS: Basophils % (Auto) 0.3 % (0.0-1.8); Eosinophils % (Auto) 0.1 % (0.0-4.3); Hematocrit 39.7 % (30.3-42.9); Hemoglobin 12.8 gm/dl (10.1-14.3); Lymphocytes # (Auto) 1.5 K/mm3 (1.2-5.4); Lymphocytes % (Auto) 11.7 % (13.4-35.0); Mean Corpuscular HGB Conc 32 % (30-34); Mean Corpuscular Volume 94 fl (79-97); Monocytes % (Auto) 7.4 % (0.0-7.3); Platelet Count 217 K/mm3 (140-440); Red Blood Count 4.22 M/mm3 (3.65-5.03); Red Cell Distribution Width 14.1 % (13.2-15.2)
[2020-05-07 15:41] LABS: BUN/Creatinine Ratio 36
[2020-05-07 17:15] VITALS: BP 130/75
== END 2020-05-07 17:15 | disposition other institution (70) ==
LOC: ED 13:16
DX: S82.301A Unspecified fracture of lower end of right tibia, initial encounter for closed fracture (principal); R56.9 Unspecified convulsions; Z79.899 Other long term (current) drug therapy; Z88.0 Allergy status to penicillin; Z88.8 Allergy status to other drugs, medicaments and biological substances; X58.XXXA Exposure to other specified factors, initial encounter; Y93.89 Activity, other specified; Y92.89 Other specified places as the place of occurrence of the external cause; Y99.8 Other external cause status
CPT/HCPCS: 36415; 80048; 85025